=== PATIENT | male | born 1950 | race Caucasian/White ===

== ENCOUNTER 2016-10-23 14:28 | Emergency (ER) | payer MEDICARE ==
--- NOTE | 2016-10-23 14:52 | ERPHSYRPT ---
- History of Present Illness Time Seen by Provider: 10/23/16 14:40 Source: patient Exam Limitations: no limitations Patient Subjective Stated Complaint: pt was cutting wood and chain saw kicked back and has laceration to left knee.no other injury Triage Nursing Assessment: pt has 4 inch laceation above the knee, able to bend knee,bleeding at present time. pressure applied Physician History: The patient is a 66-year-old male with his complaining that while cutting a tree, his chainsaw kicked back, causing a laceration above his left knee. His last tetanus vaccination was about 2-3 years ago. He is able to move his leg at the knee without any problems. He denies any pain. He denies numbness. His past medical history is significant for hypertension and depression. Timing/Duration: today Quality: other (laceration) Severity: moderate Location: extremities (left knee) Possible Causes: other (chainsaw) Allergies/Adverse Reactions: No Known Drug Allergies Allergy (Unverified 10/23/16 14:35) Home Medications: Aspirin 81 gm Chew [Baby Aspirin 81 mg Chew] 81 mg DAILY 10/23/16 [History ] Hx Tetanus, Diphtheria Vaccination/Date Given: Yes (less than 5 year) Hx Influenza Vaccination/Date Given: No Hx Pneumococcal Vaccination/Date Given: No Immunizations Up to Date: Yes - Review of Systems Constitutional: No Fever, No Chills Eyes: No Symptoms Ears, Nose, & Throat: No Symptoms Respiratory: No Cough, No Dyspnea Cardiac: No Chest Pain, No Edema, No Syncope Abdominal/Gastrointestinal: No Abdominal Pain, No Nausea, No Vomiting, No Diarrhea Genitourinary Symptoms: No Dysuria Musculoskeletal: No Back Pain, No Neck Pain Skin: Other (laceration) Neurological: No Dizziness, No Focal Weakness, No Sensory Changes Psychological: No Symptoms Endocrine: No Symptoms Hematologic/Lymphatic: No Symptoms Immunological/Allergic: No Symptoms All Other Systems: Reviewed and Negative - Past Medical History Pertinent Past Medical History: Yes Cardiac History: Congestive Heart Failure GI Medical History: Gallbladder Disease Psycho-Social History: Depression - Past Surgical History Past Surgical History: Yes Cardiac: Cardiac Catheterization, Cardiac Stent Gastrointestinal: Appendectomy, Cholecystectomy - Social History Smoking Status: Never smoker Exposure to second hand smoke: No Drug Use: none Patient Lives Alone: No - Nursing Vital Signs Nursing Vital Signs: Initial Vital Signs Temperature 98.7 F 09/18/17 14:29 Pulse Rate 66 10/23/16 14:29 Respiratory Rate 16 10/23/16 14:29 Blood Pressure 142/88 10/23/16 14:29 O2 Sat by Pulse Oximetry 92 L 10/23/16 14:29 Pain Scale Pain Intensity 1 - Physical Exam General Appearance: no apparent distress, alert Eye Exam: PERRL/EOMI, eyes nml inspection Ears, Nose, Throat Exam: normal ENT inspection, pharynx normal, moist mucous membranes Neck Exam: normal inspection, non-tender, supple, full range of motion Respiratory Exam: normal breath sounds, lungs clear, No respiratory distress Cardiovascular Exam: regular rate/rhythm, normal heart sounds Gastrointestinal/Abdomen Exam: soft, mass, No tenderness Rectal Exam: not done Back Exam: normal inspection, normal range of motion, No CVA tenderness, No vertebral tenderness Extremity Exam: normal inspection, normal range of motion Neurologic Exam: alert, oriented x 3, cooperative, normal mood/affect, sensation nml, No motor deficits Skin Exam: laceration (7 cm lac above left knee) SpO2 Interpretation: normal SpO2: 92 Oxygen Delivery: Room Air Procedures - Laceration/Wound Repair Left Knee Wound Location: Left, upper leg Wound Length (cm): 7 Wound's Depth, Shape: superficial, linear Wound Explored: clean Irrigated: Yes Hibiclens Prep: Yes Anesthesia: local, 1% Lidocaine Volume Anesthetic (ccs): 20 Wound Repaired With: sutures Suture Size/Type: 4-0 Number of Sutures: 18 Layer Closure?: No Ordered Tests: Active Orders 24 hr Category Date Time Status Wound Care STAT Care 10/23/16 14:57 Active Medication Summary Discontinued Medications Generic Name Dose Route Start Last Admin Trade Name Lisbeth PRN Reason Stop Dose Admin Lidocaine HCl 20 ml 10/23/16 14:57 10/23/16 15:22 Xylocaine 1% Hcl 20 Ml Mdv IJ 10/23/16 14:58 20 ml STAT ONE Administration Lidocaine HCl Confirm 10/23/16 15:19 Xylocaine 1% Hcl 20 Ml Mdv Administered 10/23/16 15:20 Dose 1 ml .ROUTE .STK-MED ONE - Progress Progress: improved Counseled pt/family regarding: diagnosis, need for follow-up - Departure Time of Disposition: 15:52 Departure Disposition: Home Clinical Impression: Laceration Condition: Stable Critical Care Time: No Referrals: JOSÉ SCALES [Primary Care Provider] - Instructions: Care for a Laceration After Repair Additional Instructions: You had a laceration to your left knee that was closed with 18 sutures. Take Augmentin 875 twice a day for 10 days. Take Tylenol and ibuprofen as needed for pain. Keep the area dry except for brief showers. Follow-up in 12-14 days with your local doctor for the removal of the sutures. Prescriptions: Amoxicillin/Potassium Clav [Augmentin 875-125 Tablet] 875 mg PO BID #20 tablet
[2016-10-23] MEDS ORDERED: XYLOCAINE 1% HCL 20 ML MDV IJ ONE (14:57)
[2016-10-23] MEDS ORDERED: XYLOCAINE 1% HCL 20 ML MDV ONE (15:19)
[2016-10-23 15:56] VITALS: O2SAT 92
[2016-10-23 15:57] VITALS: BP 134/73; PULSE 18
== END 2016-10-23 16:14 | disposition home or self-care (01) ==
LOC: ED 14:28
PROC: 0HQLXZZ Repair Left Lower Leg Skin, External Approach (ICD-10-PCS; principal; 2016-10-23)
DX: S81.012A Laceration without foreign body, left knee, initial encounter (principal); W31.82XA Contact with other commercial machinery, initial encounter; Y93.H9 Activity, other involving exterior property and land maintenance, building and construction
CPT/HCPCS: 12002; 99283; 99284

== ENCOUNTER 2020-10-15 06:00 | Day surgery (SDC) | payer MEDICARE ==
[2020-10-15] MEDS ORDERED: Lactated Ringers 1,000 ML IV SCH (06:30)
[2020-10-15] MEDS ORDERED: DIPRIVAN 200 MG/20 ML IV ONE ×2 (07:02→07:16)
[2020-10-15] MEDS ORDERED: Ephedrine Sulfate 50 MG/ML ONE (07:12)
[2020-10-15 07:50] VITALS: O2SAT 94
[2020-10-15 08:23] VITALS: BP 120/45; PULSE 62
--- NOTE | 2020-10-15 11:11 | OP ---
SURGERY DATE/TIME: 10/15/2020 0700 PREOPERATIVE DIAGNOSIS: Screening exam. POSTOPERATIVE DIAGNOSIS: Normal colon. PROCEDURE: Colonoscopy. SURGEON: Dr. Kilgore. ANESTHESIA: MAC. Medications given by anesthesia department. HISTORY: The patient is a 70 year-old white male patient presenting now for screening colonoscopy. He reports that his last one was over ten years ago and was normal. The patient was felt the need to have endoscopic evaluation. He was appraised of the risks of the procedure including the risk of perforation, phlebitis, untoward reaction to medication, bleeding and missed lesions. The patient verbalized his understanding and desired to have the procedure performed. DESCRIPTION OF PROCEDURE: The patient was given the medications by the anesthesia department. He had continuous pulse oximetry, ECG monitoring, intermittent blood pressure monitoring and tidal CO2 monitoring during the examination. He was placed in the left lateral decubitus position. A digital rectal examination was performed and revealed normal anal sphincter tone, no masses and normal prostate. The flexible Olympus pediatric colonoscope was used to intubate the rectum. A view of the colon was developed sequentially to the cecum. Upon insertion and withdrawal, including a retroflex view in the rectum, no mucosal lesions were encountered. The scope was removed from the patient who tolerated the procedure well and was sent back to OP recovery in good condition. The prep was noted to be good.
== END 2020-10-15 08:30 | disposition home or self-care (01) ==
LOC: SDC 06:00
PROVIDERS: ATTEND Family Medicine
DX: Z12.11 Encounter for screening for malignant neoplasm of colon (principal)
CPT/HCPCS: 99100; J2704